=== PATIENT | female | born 1935 | race Caucasian/White ===

== ENCOUNTER 2017-07-19 14:55 | Inpatient (IN) | payer OTHER, MEDICARE ==
[~2017-07-19] VITALS: Ht 154.9 cm; Wt 77.3 kg
[2017-07-19 16:14] LABS: APPEARANCE CLEAR ((CLEAR)); BILIRUBIN NEGATIVE; BLOOD NEGATIVE; COLOR AMBER ((YELLOW)); GLUCOSE (STRIP) NEGATIVE; KETONES NEGATIVE; LEUKOCYTES NEGATIVE; NITRITE POSITIVE; PROTEIN (STRIP) NEGATIVE; SPECIFIC GRAVITY 1.012 (1.000-1.030)
[2017-07-19 16:22] LABS: BACTERIA RARE /HPF; EPITHELIAL CELLS RARE /HPF; HYALINE CASTS 0-5 /LPF; MUCUS TRACE /LPF; RED BLOOD CELLS 0-5 /HPF (0-5); UCUL ADDED? NO; WHITE BLOOD CELLS 0-5 /HPF (0-5)
[2017-07-19 16:45] LABS: HEMATOCRIT 32.8 % (36.0-46.0); HEMOGLOBIN 11.3 G/DL (11.9-15.5); MCH 29.5 PG (29.0-34.0); MCHC 34.5 G/DL (30.0-36.0); MCV 85.6 FL (83-99); PLATELET COUNT 117 K/uL (156-360); RBC DIS.WIDTH-CV 13.1 % (11.8-14.6); RBC DIS.WIDTH-SD 40.9 % (39-53); RED BLOOD COUNT 3.83 M/uL (3.80-5.20); WHITE BLOOD COUNT 7.5 K/uL (4.1-10.2)
[2017-07-19 16:55] LABS: ALBUMIN 3.6 g/dL (3.2-4.8)
[2017-07-19 16:56] LABS: CHLORIDE 105 mEq/L (99-109); POTASSIUM 4.2 mEq/L (3.7-5.4); SODIUM 134 mEq/L (136-147)
[2017-07-19 16:58] LABS: GLUCOSE 97 mg/dL (70-99); TOTAL PROTEIN 6.3 g/dL (6.4-8.3)
[2017-07-19 17:00] LABS: TOTAL BILIRUBIN 0.4 mg/dL (0.0-1.0)
[2017-07-19 17:01] LABS: ALKALINE PHOSPHATASE 52 IU/L (3-129)
[2017-07-19 17:02] LABS: CREATININE 2.5 mg/dL (0.6-1.3); GFR ESTIMATE (CALCULATED) 20 mL/min/
[2017-07-19 17:03] LABS: AST (GOT) 17 IU/L (2-34); UREA NITROGEN (BUN) 50 mg/dL (9-23)
[2017-07-19 17:04] LABS: ALT (GPT) 9 IU/L (3-49)
[2017-07-19] MEDS ORDERED: PHENAZOPYRIDIN200 MG PO (19:23)
[2017-07-19] MEDS ORDERED: CEFADROXIL500 MG PO (19:23)
[2017-07-19] MEDS ORDERED: CHLORTHALIDONE25 MG PO (19:23)
[2017-07-19] MEDS ORDERED: ROSUVASTATIN CA40 MG PO (19:25)
[2017-07-19] MEDS ORDERED: CRESTOR40 MG PO (19:25)
[2017-07-19] MEDS ORDERED: TRAMADOL HCL50 MG PO (19:26)
[2017-07-19] MEDS ORDERED: VALSARTAN160 MG PO (19:26)
[2017-07-19] MEDS ORDERED: LEVOTHYROXINE100 MCG PO (19:26)
[2017-07-19] MEDS ORDERED: TUMS500 MG PO (19:27)
[2017-07-19] MEDS ORDERED: LO-DOSE ASPIRIN81 M2 PO (19:27)
[2017-07-19 20:01] LABS: BASOPHIL (%) 0.8 % (0-1); BASOPHIL COUNT 0.1 K/uL (0-0.1); EOSINOPHIL (%) 1.7 % (0-5); EOSINOPHIL COUNT 0.1 K/uL (0-0.3); IMMATURE GRANULOCYTE (%) 0.5 % (0.0-0.7); LYMPHOCYTE (%) 17.3 % (15-42); LYMPHOCYTE COUNT 1.3 K/uL (1.0-2.8); MONOCYTE (%) 10.8 % (3-12); MONOCYTE COUNT 0.8 K/uL (0-0.8); NEUTROPHIL (%) 68.9 % (45-76); NEUTROPHIL COUNT 5.3 K/uL (1.8-6.4)
[2017-07-19 20:13] LABS: CARBON DIOXIDE (BICARBONATE) 23.5 MEQ/L (20-31)
[2017-07-19 20:59] LABS: C DIFF TOXIN NEGATIVE (NEGATIVE)
[2017-07-19 21:41] VITALS: BP 179/71
[2017-07-19 23:35] VITALS: BP 159/73
[2017-07-20 03:59] VITALS: BP 142/72
[2017-07-20 05:43] LABS: HEMATOCRIT 31.8 % (36.0-46.0); HEMOGLOBIN 10.4 G/DL (11.9-15.5); MCH 28.1 PG (29.0-34.0); MCHC 32.7 G/DL (30.0-36.0); MCV 85.9 FL (83-99); RBC DIS.WIDTH-SD 40.7 % (39-53); WHITE BLOOD COUNT 6.1 K/uL (4.1-10.2)
[2017-07-20 05:54] LABS: PLATELET COUNT 170 K/uL (156-360)
[2017-07-20 06:18] LABS: ALBUMIN 3.2 G/DL (3.2-4.8); ALKALINE PHOSPHATASE 47 IU/L (3-129); ALT (GPT) 6 IU/L (3-49); AST (GOT) 12 IU/L (2-34); CHLORIDE 106 MEQ/L (99-109); CREATININE 2.4 MG/DL (0.6-1.3); GFR ESTIMATE (CALCULATED) 21 mL/min/; GLUCOSE 125 mg/dL (70-99); POTASSIUM 4.2 MEQ/L (3.7-5.4); SODIUM 135 MEQ/L (136-147); TOTAL BILIRUBIN 0.3 MG/DL (0.0-1.0); TOTAL PROTEIN 5.2 G/DL (6.4-8.3); UREA NITROGEN (BUN) 41 mg/dL (9-23)
[2017-07-20 07:45] VITALS: BP 152/79
[2017-07-20 12:39] VITALS: BP 160/62
[2017-07-20 16:15] VITALS: BP 139/59
[2017-07-20 19:13] VITALS: BP 159/67
[2017-07-21 00:42] VITALS: BP 140/82
[2017-07-21 04:10] VITALS: BP 138/76
[2017-07-21 06:07] LABS: HEMATOCRIT 31.6 % (36.0-46.0); HEMOGLOBIN 10.5 G/DL (11.9-15.5); MCH 28.5 PG (29.0-34.0); MCHC 33.2 G/DL (30.0-36.0); MCV 85.9 FL (83-99); PLATELET COUNT 175 K/uL (156-360); RBC DIS.WIDTH-CV 13.3 % (11.8-14.6); RBC DIS.WIDTH-SD 41.5 % (39-53); RED BLOOD COUNT 3.68 M/uL (3.80-5.20); WHITE BLOOD COUNT 5.4 K/uL (4.1-10.2)
[2017-07-21 06:47] LABS: ALBUMIN 3.3 G/DL (3.2-4.8); ALKALINE PHOSPHATASE 47 IU/L (3-129); ALT (GPT) 6 IU/L (3-49); AST (GOT) 12 IU/L (2-34); CHLORIDE 109 MEQ/L (99-109); CREATININE 2.4 MG/DL (0.6-1.3); GFR ESTIMATE (CALCULATED) 21 mL/min/; POTASSIUM 4.7 MEQ/L (3.7-5.4); SODIUM 137 MEQ/L (136-147); TOTAL PROTEIN 5.7 G/DL (6.4-8.3); UREA NITROGEN (BUN) 36 mg/dL (9-23)
[2017-07-21 06:50] LABS: GLUCOSE 89 mg/dL (70-99); TOTAL BILIRUBIN 0.4 MG/DL (0.0-1.0)
[2017-07-21 09:15] VITALS: BP 131/59
[2017-07-21 12:06] VITALS: BP 137/63
[2017-07-21] MEDS ORDERED: FUROSEMIDE40 MG PO (14:43)
[2017-07-21] MEDS ORDERED: APRESOLINE50 MG PO (14:43)
== END 2017-07-21 15:29 | disposition home or self-care (01) | DRG 683 ==
LOC: EME 14:55 → EDOF 20:00 → ENRESERV 20:33 → 2EAST 21:25
PROVIDERS: Internal Medicine; Physician Assistant
DX: N17.9 Acute kidney failure, unspecified (principal); E86.0 Dehydration; R19.7 Diarrhea, unspecified; R11.2 Nausea with vomiting, unspecified; T36.1X5A Adverse effect of cephalosporins and other beta-lactam antibiotics, initial encounter; N39.0 Urinary tract infection, site not specified; I12.9 Hypertensive chronic kidney disease with stage 1 through stage 4 chronic kidney disease, or unspecified chronic kidney disease; N18.3 Chronic kidney disease, stage 3 (moderate); E03.9 Hypothyroidism, unspecified; I25.10 Atherosclerotic heart disease of native coronary artery without angina pectoris; K21.9 Gastro-esophageal reflux disease without esophagitis; M19.90 Unspecified osteoarthritis, unspecified site; E66.9 Obesity, unspecified; Z68.32 Body mass index [BMI] 32.0-32.9, adult; Z87.440 Personal history of urinary (tract) infections; Z95.5 Presence of coronary angioplasty implant and graft; Z90.710 Acquired absence of both cervix and uterus
CPT/HCPCS: 80053; 81003; 82803; 83735; 85025; 85027; 87086; 87493; 93005; 99281; 99285; J0744; J1644; J2405; J7030; S0030

== ENCOUNTER 2017-07-22 20:45 | Emergency (ER) | payer OTHER, MEDICARE ==
[~2017-07-22] VITALS: Ht 154.9 cm; Wt 78.9 kg
[~2017-07-22 20:45] MED LIST: APRESOLINE50 MG PO; CEFADROXIL500 MG PO; CHLORTHALIDONE25 MG PO; CRESTOR40 MG PO; FUROSEMIDE40 MG PO; LEVOTHYROXINE100 MCG PO; LO-DOSE ASPIRIN81 M2 PO; PHENAZOPYRIDIN200 MG PO; ROSUVASTATIN CA40 MG PO; TRAMADOL HCL50 MG PO; TUMS500 MG PO; VALSARTAN160 MG PO
[2017-07-22 21:36] LABS: HEMATOCRIT 31.7 % (36.0-46.0); MCH 29.6 PG (29.0-34.0); MCHC 34.7 G/DL (30.0-36.0); MCV 85.4 FL (83-99); PLATELET COUNT 222 K/uL (156-360); RBC DIS.WIDTH-CV 13.4 % (11.8-14.6); RBC DIS.WIDTH-SD 42.1 % (39-53); RED BLOOD COUNT 3.71 M/uL (3.80-5.20); WHITE BLOOD COUNT 7.5 K/uL (4.1-10.2)
[2017-07-22 21:48] LABS: ALBUMIN 4.1 g/dL (3.2-4.8); CHLORIDE 100 mEq/L (99-109); POTASSIUM 4.5 mEq/L (3.7-5.4); SODIUM 132 mEq/L (136-147)
[2017-07-22 21:51] LABS: GLUCOSE 90 mg/dL (70-99); TOTAL PROTEIN 6.8 g/dL (6.4-8.3)
[2017-07-22 21:54] LABS: ALKALINE PHOSPHATASE 63 IU/L (3-129); CREATININE 2.6 mg/dL (0.6-1.3); GFR ESTIMATE (CALCULATED) 19 mL/min/
[2017-07-22 21:56] LABS: AST (GOT) 24 IU/L (2-34); TOTAL BILIRUBIN 0.5 mg/dL (0.0-1.0); UREA NITROGEN (BUN) 44 mg/dL (9-23)
[2017-07-22 21:57] LABS: ALT (GPT) 14 IU/L (3-49)
[2017-07-23 01:20] LABS: TROP-I INTERPRETATION NEGATIVE; TROPONIN-I < 0.01 ng/mL (0.0-0.30)
[2017-07-23 02:37] LABS: APPEARANCE CLEAR ((CLEAR)); BILIRUBIN NEGATIVE; BLOOD NEGATIVE; COLOR YELLOW ((YELLOW)); GLUCOSE (STRIP) NEGATIVE; KETONES NEGATIVE; LEUKOCYTES NEGATIVE; NITRITE NEGATIVE; PROTEIN (STRIP) NEGATIVE; SPECIFIC GRAVITY 1.006 (1.000-1.030); UCUL ADDED? NO; UROBILINOGEN 0.2 MG/DL (0.2-1.0)
[2017-07-23] MEDS ORDERED: FLAGYL500 MG PO (02:52)
[2017-07-23] MEDS ORDERED: CIPRO500 MG PO (02:53)
[2017-07-23] MEDS ORDERED: MAALOX ADVANCE355 ML PO (02:53)
[2017-07-23 04:04] VITALS: BP 171/62
== END 2017-07-23 04:04 | disposition home or self-care (01) ==
LOC: EME 20:45
PROVIDERS: Emergency Medicine
DX: R53.1 Weakness (principal); M54.5 Low back pain; R10.9 Unspecified abdominal pain; Z87.440 Personal history of urinary (tract) infections; I10 Essential (primary) hypertension; K21.9 Gastro-esophageal reflux disease without esophagitis; Z90.49 Acquired absence of other specified parts of digestive tract; Z79.82 Long term (current) use of aspirin
CPT/HCPCS: 71046; 74176; 80048; 80053; 81003; 83880; 84484; 85027; 99281; 99285; J7030